=== PATIENT | female | born 1970 | race American Indian/Alaskan Native ===

== ENCOUNTER 2018-04-11 01:15 | Emergency (ER) | payer OTHER ==
[2018-04-11 01:25] VITALS: BP 149/78
[2018-04-11] MEDS ORDERED: IBUPROFEN PO ONE (04:22)
--- NOTE | 2018-04-11 04:22 | Emergency Department Report ---
Minor Respiratory - HPI Chief Complaint: Earache Stated Complaint: LEFT EAR PAIN Time Seen by Provider: 04/11/18 03:51 Duration: 1 Day (ear pain the patient reported that she has had postnasal drip, clogged ear sensation and congestion in her nose for over a week.) Pain Location: Ear (bilateral ear pain worse than left) Severity: severe (8/10) Minor Respiratory: Yes Rhinorrhea (nasal congestion), Yes Able to Tolerate Fluids, Yes Ear Pain (bilateral ear pain worse than left), No Sore Throat, No Cough, No Sick Contacts, No Hemoptysis, No Chest Pain, No Shortness of Breath, No Fever Other History: This is a 47-year-old female here report that she is having left ear pain and now its gone in her right ear. She said it started yesterday and her pain is 8 out of 10 and achy and worse with talking. She said that it started about a week ago with nasal congestion runny nose and postnasal drip. Denies any trauma or drainage from her ear. Last menstrual cycle was 04/04/2018. Denies any medical problems. Denies any fever chills or any nausea or vomiting. Denies any cough, shortness of breath or chest pain. She took [id number] pain medication but it did not help. ED Review of Systems ROS: Stated complaint: LEFT EAR PAIN Other details as noted in HPI Constitutional: denies: chills, fever Eyes: denies: eye pain, eye discharge ENT: ear pain, congestion. denies: throat pain Respiratory: denies: cough, shortness of breath, wheezing Cardiovascular: denies: chest pain, palpitations, edema Gastrointestinal: denies: nausea, vomiting Musculoskeletal: denies: back pain, arthralgia Skin: denies: rash Neurological: denies: headache, abnormal gait, vertigo ED Past Medical Hx - Past Medical History Previous Medical History?: No - Surgical History Past Surgical History?: Yes Additional Surgical History: - Family History Family history: hypertension - Social History Smoking Status: Never Smoker Substance Use Type: None - Medications Home Medications: Home Medications Medication Instructions Recorded Confirmed Last Taken Type Azithromycin [Zithromax Z-ALEJO] 250 mg PO DAILY 5 Days #1 pkg 04/11/18 Unknown Rx Cetirizine HCl [ZyrTEC] 10 mg PO QAM 14 Days #14 capsule 04/11/18 Unknown Rx Fluconazole [Diflucan TAB] 200 mg PO QDAY 1 Days #1 tablet 04/11/18 Unknown Rx Fluticasone [Flonase] 1 spray NS QDAY 14 Days #1 bottle 04/11/18 Unknown Rx Ibuprofen [Motrin] 800 mg PO Q8HR PRN #12 tablet 04/11/18 Unknown Rx Minor Respiratory Exam - Exam General: Vital signs noted. No distress. Alert and acting appropriately. This is a 47-year-old female well-nourished. In no acute distress HEENT: Yes Moist Mucous Membranes, Yes Rhinorrhea (nasal congestion and nasal mucosa pale and boggy.), No Pharyngeal Erythema, No Pharyngeal Exudates, No Conjuctival Injection, No Frontal Tenderness, No Maxillary Tenderness Ear: Left TM Erythema, Neither TM Bulge (bilateral TM congested), Neither EAC Pain, Neither EAC Discharge Neck: Yes Supple (full range of motion and no C-spine tenderness), No Adenopathy Lungs: Yes Good Air Exchange, No Wheezes, No Ronchi, No Stridor, No Cough, No Labored Respirations, No Retractions, No Use of Accessory Muscles, No Other Abnormal Lung Sounds Heart: Yes Regular (mild tachycardia 102, regular rhythm), No Murmur Abdomen: Yes Normal Bowel Sounds (in all quadrants), No Tenderness Skin: No Rash, No Edema Neurologic: Alert and oriented 3, no deficits. Normal exam Musculoskeletal: Unremarkable. Normal exam No cce. + 2 pulses in all extremities, no neurovascular compromise ED Course Vital Signs 04/11/18 01:22 Temperature 98 F Pulse Rate 102 H Respiratory 16 Rate Blood Pressure 149/78 O2 Sat by Pulse 100 Oximetry Vital Signs (72 hours) 04/11/18 04/11/18 01:22 04:28 Temperature 98 F Pulse Rate 102 H 100 H Respiratory 16 Rate Blood Pressure 149/78 O2 Sat by Pulse 100 Oximetry - Reevaluation(s) Reevaluation #1: 04/11/18 04:28 Patient received Motrin 800 mg when necessary emergency room for earache. ED Medical Decision Making - Medical Decision Making This is a 47-year-old female here complaining of left earache that is moving to her right ear and also nasal congestion postnasal drip. Physical findings for left otitis media and bilateral TM congested. I discussed diagnosis and treatment plan the patient's and she voiced understanding. She is given Motrin 800 mg emergency room for ear pain and discharged home with prescription for Zyrtec, Flonase, Z-Alejo as she is allergic to penicillin and Motrin. Patient al so requested Diflucan because she says usually gets yeast infection from antibiotics that she will be given prescription for Diflucan. Patient to follow up with her primary care physician which she does have one in 3-5 days. Discharged home in stable condition. Vital signs are stable she is afebrile. Critical care attestation.: If time is entered above; I have spent that time in minutes in the direct care of this critically ill patient, excluding procedure time. ED Disposition Clinical Impression: Otalgia of both ears Left otitis media Qualifiers: Otitis media type: unspecified Qualified Code(s): H66.92 - Otitis media, unspecified, left ear Upper respiratory infection Qualifiers: URI type: unspecified URI Qualified Code(s): J06.9 - Acute upper respiratory infection, unspecified Disposition: TO HOME OR SELFCARE Is pt being admited?: No Does the pt Need Aspirin: No Condition: Stable Instructions: Otitis Media (ED), Earache (ED), Upper Respiratory Infection (ED) Additional Instructions: Please follow-up with primary care physician in 3-5 days Take medication as prescribed and if you develop a yeast infection he can take Diflucan on 1. Take Motrin for pain as prescribed and try to take this medication with food as this medication can cause irritation to stomach lining If you condition worsens, return to the emergency room Avoid getting moisture in ears Referrals: [facility] [Outside] - 3-5 Days your, primary care physician [Other] - 3-5 Days Forms: Work/School Release Form(ED)
== END 2018-04-11 04:50 | disposition home or self-care (01) ==
LOC: ED 01:15
DX: H66.93 Otitis media, unspecified, bilateral (principal); J06.9 Acute upper respiratory infection, unspecified; Z88.0 Allergy status to penicillin
CPT/HCPCS: 99282

== ENCOUNTER 2021-06-15 06:30 | Emergency (ER) | payer SELFPAY ==
[2021-06-15 06:39] VITALS: BP 133/94
--- NOTE | 2021-06-15 07:38 | XRay Report ---
BILATERAL HIP 3 VIEW(S) INDICATION / CLINICAL INFORMATION: fall COMPARISON: None available. FINDINGS: BONES / JOINT(S): No acute fracture or subluxation. Moderately advanced bilateral osteonecrosis of th e femoral heads is demonstrated with flattening the superior articular surface as well as subarticula r cystic changes within each of the femoral heads. Additionally the left acetabulum demonstrates cyst ic changes of the left acetabular roof. SOFT TISSUES: No significant abnormality. ADDITIONAL FINDINGS: None. IMPRESSION: 1. Moderately advanced bilateral osteonecrosis of the femoral heads as detailed. Signer Name: Elias Mcwilliams II, MD Signed: 06/15/2021 7:33 AM Workstation Name: [id number]
== END 2021-06-15 10:16 | disposition left against medical advice (07) ==
LOC: ED 06:30
DX: M79.18 Myalgia, other site (principal); Z53.21 Procedure and treatment not carried out due to patient leaving prior to being seen by health care provider
CPT/HCPCS: 73521

== ENCOUNTER 2021-07-18 03:35 | Emergency (ER) | payer SELFPAY ==
[2021-07-18 06:29] VITALS: BP 128/83
[2021-07-18] MEDS ORDERED: oxyCODONE /ACETAMINOPHEN 5-325MG TAB PO ONE (11:01)
[2021-07-18] MEDS ORDERED: KETOROLAC 10 MG TAB PO ONE (11:01)
[2021-07-18] MEDS ORDERED: predniSONE 20 MG TAB PO ONE (11:01)
[2021-07-18] MEDS ORDERED: CYCLOBENZAPRINE 10 MG TAB PO ONE (11:01)
--- NOTE | 2021-07-18 11:28 | Emergency Department Report ---
ED Extremity Problem HPI - General Chief complaint: Pain General Stated complaint: MUSCLE SPASMS/WEAKNESS/RAPID HEARTBEAT/TIGHTNESS Time Seen by Provider: 07/18/21 11:01 Source: patient Mode of arrival: Ambulatory Limitations: No Limitations - History of Present Illness Initial comments: 51-year-old black female with a known history of bilateral hip osteoarthritis presents to the emergency department for evaluation of bilateral hip pain with intermittent muscle spasms. She states that she is currently on Medicare with an orthopedic surgeon with a plan for bilateral hip replacement but states that pain has been significantly worse over the last few days and she is having intermittent spasms when she keeps her legs really really still. She states that she is also having problems sleeping because she is having so much pain. She denies any injury or trauma and states that she has not been taking any medication for her pain. She states that she did take an Ambien for her insomnia but she still could not sleep. MD Complaint: extremity pain -: Gradual, week(s) (1.5) Location: right, bilateral lower extremity (Hips) History of Same: Yes -: No myalgia, Yes arthralgia, No fever, No associated dyspnea, No associated c hest pain Radiation: none Severity scale (0 -10): 10 Quality: aching Consistency: constant Worsens with: walking, palpation Associated Symptoms: denies: chest pain, shortness of breath, fever, myalgias, arthralgias, rash - Related Data Previous Rx's Medication Instructions Recorded Last Taken Type Azithromycin [Zithromax Z-ALEJO] 250 mg PO DAILY 5 Days #1 pkg 04/11/18 Unknown Rx Cetirizine HCl [ZyrTEC] 10 mg PO QAM 14 Days #14 capsule 04/11/18 Unknown Rx Fluconazole [Diflucan TAB] 200 mg PO QDAY 1 Days #1 tablet 04/11/18 Unknown Rx Fluticasone [Flonase] 1 spray NS QDAY 14 Days #1 bottle 04/11/18 Unknown Rx Ibuprofen [Motrin] 800 mg PO Q8HR PRN #12 tablet 04/11/18 Unknown Rx Cyclobenzaprine [Flexeril] 10 mg PO TID PRN #30 tab 07/18/21 Unknown Rx hydrOXYzine PAMOATE [Vistaril] 50 mg PO Q6HR PRN #30 capsule 07/18/21 Unknown Rx traMADoL [Ultram] 50 mg PO Q6HR PRN #12 tablet 07/18/21 Unknown Rx Allergies Allergy/AdvReac Type Severity Reaction Status Date / Time Penicillins Allergy Hives Verified 06/15/21 06:39 ED Review of Systems ROS: Stated complaint: MUSCLE SPASMS/WEAKNESS/RAPID HEARTBEAT/TIGHTNESS Other details as noted in HPI Comment: Unobtainable due to pts medical conditions Constitutional: denies: chills, fever Eyes: denies: vision change ENT: denies: congestion Respiratory: denies: shortness of breath, SOB with exertion, SOB at rest Cardiovascular: denies: chest pain, palpitations, dyspnea on exertion, edema, syncope, paroxysmal nocturnal dyspnea Gastrointestinal: denies: abdominal pain, nausea, vomiting Genitourinary: denies: urgency, dysuria Musculoskeletal: denies: back pain Skin: denies: rash, lesions ED Past Medical Hx - Past Medical History Previous Medical History?: Yes Hx Arthritis: Yes Additional medical history: osteoarthritis bilateral hips. Chronic Pain. Insomnia - Surgical History Additional Surgical History: . Uterine embolization - Social History Smoking Status: Never Smoker Substance Use Type: None - Medications Home Medications: Home Medications Medication Instructions Recorded Confirmed Last Taken Type Azithromycin [Zithromax Z-ALEJO] 250 mg PO DAILY 5 Days #1 pkg 04/11/18 Unknown Rx Cetirizine HCl [ZyrTEC] 10 mg PO QAM 14 Days #14 capsule 04/11/18 Unknown Rx Fluconazole [Diflucan TAB] 200 mg PO QDAY 1 Days #1 tablet 04/11/18 Unknown Rx Fluticasone [Flonase] 1 spray NS QDAY 14 Days #1 bottle 04/11/18 Unknown Rx Ibuprofen [Motrin] 800 mg PO Q8HR PRN #12 tablet 04/11/18 Unknown Rx Cyclobenzaprine [Flexeril] 10 mg PO TID PRN #30 tab 07/18/21 Unknown Rx hydrOXYzine PAMOATE [Vistaril] 50 mg PO Q6HR PRN #30 capsule 07/18/21 Unknown Rx traMADoL [Ultram] 50 mg PO Q6HR PRN #12 tablet 07/18/21 Unknown Rx ED Physical Exam - General Limitations: No Limitations General appearance: alert, in no apparent distress - Head Head exam: Present: atraumatic, normocephalic - Eye Eye exam: Present: normal appearance. Absent: conjunctival injection - Neck Neck exam: Present: normal inspection. Absent: tenderness, lymphadenopathy - Respiratory Respiratory exam: Present: normal lung sounds bilaterally. Absent: respiratory distress, wheezes, rales, rhonchi, stridor, chest wall tenderness - Cardiovascular Cardiovascular Exam: Present: tachycardia, normal heart sounds - GI/Abdominal GI/Abdominal exam: Present: soft, normal bowel sounds. Absent: distended, tenderness, guarding, rebound, rigid - Extremities Exam Extremities exam: Present: normal inspection, tenderness (Bilateral hip), normal capillary refill. Absent: pedal edema, joint swelling, calf tenderness - Expanded Lower Extremity Exam Left Hip exam: Present: normal inspection, full ROM, tenderness. Absent: swelling, abrasion, ecchymosis, erythema Neuro vascular tendon exam: Present: no vascular compromise. Absent: pulse deficit, abnormal cap refill, extremity cold to touch, pallor Gait: Positive: observed and limited by pain Right Hip exam: Present: normal inspection, tenderness. Absent: swelling, abrasion, ecchymosis, erythema Neuro vascular tendon exam: Present: no vascular compromise. Absent: pulse deficit, abnormal cap refill, extremity cold to touch, pallor Gait: Positive: observed and limited by pain - Back Exam Back exam: Present: normal inspection. Absent: CVA tenderness (R), CVA tenderness (L) - Neurological Exam Neurological exam: Present: alert, oriented X3 - Psychiatric Psychiatric exam: Present: normal affect, normal mood - Skin Skin exam: Present: warm, dry, intact, normal color ED Course Vital Signs 07/18/21 06:26 Temperature 98.3 F Pulse Rate 107 H Respiratory 16 Rate Blood Pressure 128/83 O2 Sat by Pulse 100 Oximetry ED Medical Decision Making - Medical Decision Making 51-year-old black female with a known history of bilateral hip osteoarthritis presents to the emergency department for evaluation of bilateral hip pain with intermittent muscle spasms. She states that she is currently on Medicare with an orthopedic surgeon with a plan for bilateral hip replacement but states that pain has been significantly worse over the last few days and she is having intermittent spasms when she keeps her legs really really still. She states that she is also having problems sleeping because she is having so much pain. She denies any injury or trauma and states that she has not been taking any medication for her pain. She states that she did take an Ambien for her insomnia but she still could not sleep. Physical exam unremarkable. Patient denied steroid Dosepak but states that she will take one-time dose of steroid. Patient denied NSAIDs but states that she will take a one-time dose of Toradol. She was also given Flexeril and 1 Percocet while in the emergency department and will be discharged home with Flexeril and Ultram to use as needed for pain. She was also given Vistaril to use as needed for anxiety which she states she has because of her inability to control the pain. She is advised to follow-up with her orthopedic surgeon for further management. She verbalizes understanding of and agreement with plan of care. Critical care attestation.: If time is entered above; I have spent that time in minutes in the direct care of this critically ill patient, excluding procedure time. ED Disposition Clinical Impression: Muscle spasm Osteoarthritis of both hips Qualifiers: Osteoarthritis type: unspecified Qualified Code(s): M16.0 - Bilateral primary osteoarthritis of hip Insomnia Qualifiers: Insomnia type: unspecified Qualified Code(s): G47.00 - Insomnia, unspecified Disposition: HOME / SELF CARE / HOMELESS Is pt being admited?: No Does the pt Need Aspirin: No Condition: Stable Instructions: Muscle Cramps and Spasms, [id number], Arthritis, [id number], Osteoarthritis, Insomnia Additional Instructions: Take medications as prescribed. Follow-up with orthopedics as planned. Return to the emergency department as needed. Prescriptions: Cyclobenzaprine [Flexeril] 10 mg PO TID PRN #30 tab PRN Reason: Muscle Spasm traMADoL [Ultram] 50 mg PO Q6HR PRN #12 tablet PRN Reason: Pain hydrOXYzine PAMOATE [Vistaril] 50 mg PO Q6HR PRN #30 capsule PRN Reason: Anxiety Referrals: SEBASTIÁN WEISS MD [Staff Physician] - 3-5 Days Time of Disposition: 11:28
== END 2021-07-18 12:43 | disposition home or self-care (01) ==
LOC: ED 03:35
DX: M16.0 Bilateral primary osteoarthritis of hip (principal); M62.838 Other muscle spasm; G47.00 Insomnia, unspecified; M19.90 Unspecified osteoarthritis, unspecified site; Z88.0 Allergy status to penicillin; Z79.899 Other long term (current) drug therapy
CPT/HCPCS: 99282

== ENCOUNTER 2021-07-25 02:59 | Emergency (ER) | payer SELFPAY ==
[2021-07-25 03:28] VITALS: BP 136/80
[2021-07-25] MEDS ORDERED: KETOROLAC 30 MG/1 ML INJ IM ONE (05:25)
--- NOTE | 2021-07-25 06:33 | Emergency Department Report ---
ED General Adult HPI - General Chief complaint: Back Pain/Injury Stated complaint: LOWER BCK PAIN/INSOMIA Time Seen by Provider: 07/25/21 06:24 Source: patient Mode of arrival: Ambulatory Limitations: No Limitations - History of Present Illness Initial comments: 51-year-old female diagnosed with bilateral hip osteonecrosis in June 2021. Patient is pending orthopedic follow-up for bilateral hip replacement. Patient presents tonight for refill on pain medication. Patient denies new fall injury or trauma. Patient states current pain is 7/10 sharp. Pain is exacerbated by completing work duties. Patient arrived today via POV amatory gait is steady patient is with no acute distress at this time. Severity scale (0 -10): 10 - Related Data Previous Rx's Medication Instructions Recorded Last Taken Type Azithromycin [Zithromax Z-ALEJO] 250 mg PO DAILY 5 Days #1 pkg 04/11/18 Unknown Rx Cetirizine HCl [ZyrTEC] 10 mg PO QAM 14 Days #14 capsule 04/11/18 Unknown Rx Fluconazole [Diflucan TAB] 200 mg PO QDAY 1 Days #1 tablet 04/11/18 Unknown Rx Fluticasone [Flonase] 1 spray NS QDAY 14 Days #1 bottle 04/11/18 Unknown Rx Ibuprofen [Motrin] 800 mg PO Q8HR PRN #12 tablet 04/11/18 Unknown Rx Cyclobenzaprine [Flexeril] 10 mg PO TID PRN #30 tab 07/18/21 Unknown Rx hydrOXYzine PAMOATE [Vistaril] 50 mg PO Q6HR PRN #30 capsule 07/18/21 Unknown Rx traMADoL [Ultram] 50 mg PO Q6HR PRN #12 tablet 07/18/21 Unknown Rx HYDROcodone/APAP 5-325 [[place] 1 each PO Q6HR PRN #12 tablet 07/25/21 Unknown Rx 5-325 mg TAB] Allergies Allergy/AdvReac Type Severity Reaction Status Date / Time Penicillins Allergy Hives Verified 06/15/21 06:39 ED Review of Systems ROS: Stated complaint: LOWER BCK PAIN/INSOMIA Other details as noted in HPI Constitutional: denies: chills, fever Eyes: denies: eye pain, eye discharge, vision change ENT: denies: ear pain, throat pain Respiratory: denies: cough, shortness of breath, wheezing Cardiovascular: denies: chest pain, palpitations Endocrine: no symptoms reported Gastrointestinal: as per HPI. denies: nausea, vomiting Genitourinary: denies: urgency, dysuria, discharge Musculoskeletal: back pain, other (Left lateral flank and rib pain) Skin: denies: rash, lesions Neurological: denies: headache, weakness, paresthesias Psychiatric: denies: anxiety, depression Hematological/Lymphatic: denies: easy bleeding, easy bruising ED Past Medical Hx - Past Medical History Hx Arthritis: Yes Additional medical history: osteoarthritis bilateral hips. Chronic Pain. Insomnia - Surgical History Additional Surgical History: . Uterine embolization - Social History Smoking Status: Never Smoker Substance Use Type: None - Medications Home Medications: Home Medications Medication Instructions Recorded Confirmed Last Taken Type Azithromycin [Zithromax Z-ALEJO] 250 mg PO DAILY 5 Days #1 pkg 04/11/18 Unknown Rx Cetirizine HCl [ZyrTEC] 10 mg PO QAM 14 Days #14 capsule 04/11/18 Unknown Rx Fluconazole [Diflucan TAB] 200 mg PO QDAY 1 Days #1 tablet 04/11/18 Unknown Rx Fluticasone [Flonase] 1 spray NS QDAY 14 Days #1 bottle 04/11/18 Unknown Rx Ibuprofen [Motrin] 800 mg PO Q8HR PRN #12 tablet 04/11/18 Unknown Rx Cyclobenzaprine [Flexeril] 10 mg PO TID PRN #30 tab 07/18/21 Unknown Rx hydrOXYzine PAMOATE [Vistaril] 50 mg PO Q6HR PRN #30 capsule 07/18/21 Unknown Rx traMADoL [Ultram] 50 mg PO Q6HR PRN #12 tablet 07/18/21 Unknown Rx HYDROcodone/APAP 5-325 [[place] 1 each PO Q6HR PRN #12 tablet 07/25/21 Unknown Rx 5-325 mg TAB] ED Physical Exam - General Limitations: No Limitations General appearance: alert, in no apparent distress - Head Head exam: Present: normocephalic, normal inspection - Eye Eye exam: Present: normal appearance, EOMI Pupils: Present: normal accommodation - ENT ENT exam: Present: mucous membranes moist - Neck Neck exam: Present: normal inspection - Respiratory Respiratory exam: Present: normal lung sounds bilaterally. Absent: respiratory distress, wheezes, rales, rhonchi, stridor, chest wall tenderness - Cardiovascular Cardiovascular Exam: Present: regular rate, normal rhythm, normal heart sounds. Absent: systolic murmur, diastolic murmur, rubs, gallop - GI/Abdominal GI/Abdominal exam: Present: soft, normal bowel sounds. Absent: distended, tenderness - Rectal Rectal exam: Present: deferred - Extremities Exam Extremities exam: Present: normal inspection, full ROM, normal capillary refill - Back Exam Back exam: Present: normal inspection, full ROM, paraspinal tenderness. Absent: CVA tenderness (R), CVA tenderness (L), vertebral tenderness - Expanded Back Exam Expanded Back exam: Absent: saddle anesthesia Back exam: Negative Straight Leg Raising: Left, Right - Neurological Exam Neurological exam: Present: alert, oriented X3, CN II-XII intact, normal gait, reflexes normal. Absent: motor sensory deficit - Expanded Neurological Exam Expanded Patient oriented to: Present: person, place, time Speech: Present: fluid speech Sensory exam: Lower Extremity Light Touch: Normal, Lower Extremity Pin Prick: Normal, Lower Extremity Temperature: Normal Motor strength exam: RUE: 5, LUE: 5, RLE: 5, LLE: 5 DTR: knee (R): 1+, knee (L): 1+ Best Eye Response ([place]): (4) open spontaneously Best Motor Response ([place]): (6) obeys commands Best Verbal Response ([place]): (5) oriented [place] Total: 15 - Psychiatric Psychiatric exam: Present: normal affect, normal mood - Skin Skin exam: Present: warm, dry, intact, normal color. Absent: rash ED Course Vital Signs 07/25/21 07/25/21 03:27 05:37 Temperature 98.6 F Pulse Rate 106 H Respiratory 18 18 Rate Blood Pressure 136/80 O2 Sat by Pulse 99 Oximetry ED Medical Decision Making - Radiology Data Radiology results: report reviewed, image reviewed BILATERAL HIP 3 VIEW(S) INDICATION / CLINICAL INFORMATION: fall COMPARISON: None available. FINDINGS: BONES / JOINT(S): No acute fracture or subluxation. Moderately advanced bilateral osteonecrosis of the femoral heads is demonstrated with flattening the superior articular surface as well as subarticular cystic changes within each of the femoral heads. Additionally the left acetabulum demonstrates cystic changes of the left acetabular roof. SOFT TISSUES: No significant abnormality. ADDITIONAL FINDINGS: None. IMPRESSION: 1. Moderately advanced bilateral osteonecrosis of the femoral heads as detailed. Signer Name: Aletha Mcwilliams II, MD Signed: 06/15/2021 7:33 AM Workstation Name: [id number] Transcribed By: ANA MARIA Dictated By: ALETHA MCWILLIAMS II, MD Electronically Authenticated By: ALETHA MCWILLIAMS II, MD Signed Date/Time: 06/15/21732 DD/ 1 TD/TT: Print Cancel - Medical Decision Making Pain improved medications given in ED. Refill pain medication, follow-up with Ortho as scheduled. Patient verbalized agreement understanding discharge plan. Patient DC'd home in stable condition at this time. Critical care attestation.: If time is entered above; I have spent that time in minutes in the direct care of this critically ill patient, excluding procedure time. ED Disposition Clinical Impression: Osteoarthritis Qualifiers: Osteoarthritis location: hip Osteoarthritis type: unspecified Laterality: bilateral Qualified Code(s): M16.0 - Bilateral primary osteoarthritis of hip Disposition: 01 HOME / SELF CARE / HOMELESS Is pt being admited?: No Does the pt Need Aspirin: No Condition: Stable Instructions: Osteoarthritis Additional Instructions: Take medications as prescribed, follow-up with orthopedics as scheduled. Return to emergency department should symptoms worsen Prescriptions: HYDROcodone/APAP 5-325 [[place] 5-325 mg TAB] 1 each PO Q6HR PRN #12 tablet PRN Reason: Pain Referrals: [facility] SUTTON MD [Staff Physician] - 3-5 Days Forms: Work/School Release Form(ED) Time of Disposition: 06:56
== END 2021-07-25 07:13 | disposition home or self-care (01) ==
LOC: ED 02:59
DX: M16.10 Unilateral primary osteoarthritis, unspecified hip (principal); Z88.0 Allergy status to penicillin
CPT/HCPCS: 96372; 99282; J1885

== ENCOUNTER 2021-09-29 07:37 | Emergency (ER) | payer SELFPAY ==
[2021-09-29 07:59] VITALS: BP 131/86
--- NOTE | 2021-09-29 08:50 | Emergency Department Report ---
ED Recheck HPI - General Chief Complaint: Pain General Stated Complaint: HIP KNEE AND TAILBONE PAIN/INSOMNIA Time Seen by Provider: 09/29/21 08:49 Source: patient Mode of arrival: Ambulatory Limitations: No Limitations - History of Present Illness Initial Comments: 51 YO CHRONIC PAIN PT COMES TO ER CO PAIN AND REQUESTING REFILL OF HER PERCOCET SHE HAS NO NEW SYMPTOMS OR TRAUMA SHE HAS A HX OF ARTHRITIS AND HER PCP GIVES HER PERCOCET MD Complaint: medication refill request - Related Data Previous Rx's Medication Instructions Recorded Last Taken Type Azithromycin [Zithromax Z-ALEJO] 250 mg PO DAILY 5 Days #1 pkg 04/11/18 Unknown Rx Cetirizine HCl [ZyrTEC] 10 mg PO QAM 14 Days #14 capsule 04/11/18 Unknown Rx Fluconazole [Diflucan TAB] 200 mg PO QDAY 1 Days #1 tablet 04/11/18 Unknown Rx Fluticasone [Flonase] 1 spray NS QDAY 14 Days #1 bottle 04/11/18 Unknown Rx Ibuprofen [Motrin] 800 mg PO Q8HR PRN #12 tablet 04/11/18 Unknown Rx Cyclobenzaprine [Flexeril] 10 mg PO TID PRN #30 tab 07/18/21 Unknown Rx hydrOXYzine PAMOATE [Vistaril] 50 mg PO Q6HR PRN #30 capsule 07/18/21 Unknown Rx traMADoL [Ultram] 50 mg PO Q6HR PRN #12 tablet 07/18/21 Unknown Rx HYDROcodone/APAP 5-325 [[place] 1 each PO Q6HR PRN #12 tablet 07/25/21 Unknown Rx 5-325 mg TAB] Allergies Allergy/AdvReac Type Severity Reaction Status Date / Time Penicillins Allergy Hives Verified 09/29/21 08:00 ED Review of Systems ROS: Stated complaint: HIP KNEE AND TAILBONE PAIN/INSOMNIA Other details as noted in HPI Comment: All other systems reviewed and negative ED Past Medical Hx - Past Medical History Previous Medical History?: Yes Hx Arthritis: Yes Additional medical history: osteoarthritis bilateral hips. Chronic Pain. Insomnia - Surgical History Past Surgical History?: Yes Additional Surgical History: . Uterine embolization - Family History Family history: no significant - Social History Smoking Status: Never Smoker Substance Use Type: None - Medications Home Medications: Home Medications Medication Instructions Recorded Confirmed Last Taken Type Azithromycin [Zithromax Z-ALEJO] 250 mg PO DAILY 5 Days #1 pkg 04/11/18 Unknown Rx Cetirizine HCl [ZyrTEC] 10 mg PO QAM 14 Days #14 capsule 04/11/18 Unknown Rx Fluconazole [Diflucan TAB] 200 mg PO QDAY 1 Days #1 tablet 04/11/18 Unknown Rx Fluticasone [Flonase] 1 spray NS QDAY 14 Days #1 bottle 04/11/18 Unknown Rx Ibuprofen [Motrin] 800 mg PO Q8HR PRN #12 tablet 04/11/18 Unknown Rx Cyclobenzaprine [Flexeril] 10 mg PO TID PRN #30 tab 07/18/21 Unknown Rx hydrOXYzine PAMOATE [Vistaril] 50 mg PO Q6HR PRN #30 capsule 07/18/21 Unknown Rx traMADoL [Ultram] 50 mg PO Q6HR PRN #12 tablet 07/18/21 Unknown Rx HYDROcodone/APAP 5-325 [[place] 1 each PO Q6HR PRN #12 tablet 07/25/21 Unknown Rx 5-325 mg TAB] ED Physical Exam - General Limitations: No Limitations General appearance: alert, in no apparent distress - Head Head exam: Present: atraumatic, normocephalic - Eye Eye exam: Present: normal appearance - ENT ENT exam: Present: mucous membranes moist - Neck Neck exam: Present: normal inspection - Respiratory Respiratory exam: Present: normal lung sounds bilaterally. Absent: respiratory distress - Cardiovascular Cardiovascular Exam: Present: regular rate, normal rhythm. Absent: systolic murmur, diastolic murmur, rubs, gallop - GI/Abdominal GI/Abdominal exam: Present: soft, normal bowel sounds - Extremities Exam Extremities exam: Present: normal inspection - Back Exam Back exam: Present: normal inspection - Neurological Exam Neurological exam: Present: alert, oriented X3 - Psychiatric Psychiatric exam: Present: normal affect, normal mood - Skin Skin exam: Present: warm, dry, intact, normal color. Absent: rash ED Course Vital Signs 09/29/21 07:55 Temperature 98.0 F Pulse Rate 100 H Respiratory 20 Rate Blood Pressure 131/86 [Right] O2 Sat by Pulse 99 Oximetry ED Recheck MDM - Differential Diagnosis Prescription Refill(s) - Medical Decision Making MARGARITO OFFERED PT DECADRON/PREDNISONE/ MOTRIN OR TYLENOL SHE DECLINES MARGARITO INFORMED HER WE DO NOT GIVE RX FOR NARCOTICS SHE WOULD NEED TO SEE PCP OR CHRONIC PAIN PT. PT LEFT ER Vital Signs 09/29/21 07:55 Temperature 98.0 F Pulse Rate 100 H Respiratory 20 Rate Blood Pressure 131/86 [Right] O2 Sat by Pulse 99 Oximetry Critical care attestation.: If time is entered above; I have spent that time in minutes in the direct care of this critically ill patient, excluding procedure time. ED Disposition Clinical Impression: Chronic pain, Drug-seeking behavior Disposition: 07 LEFT AWOL/ELOPED Is pt being admited?: No Does the pt Need Aspirin: No Condition: Stable Time of Disposition: 08:50
== END 2021-09-29 09:30 | disposition left against medical advice (07) ==
LOC: ED 07:37
DX: G89.29 Other chronic pain (principal); Z72.89 Other problems related to lifestyle; M19.90 Unspecified osteoarthritis, unspecified site; Z98.890 Other specified postprocedural states; Z88.0 Allergy status to penicillin; Z79.899 Other long term (current) drug therapy
CPT/HCPCS: 99281